=== PATIENT | male | born 1975 | race Caucasian/White ===

== ENCOUNTER 2016-12-07 15:20 | Emergency (ER) | payer OTHER ==
[2016-12-07] MEDS ORDERED: HYDROMORPHONE HCL INJ/PF 2 MG/ML AMPULE IM ONE (15:31)
[2016-12-07] MEDS ORDERED: CEFAZOLIN INJ 1 GM VIAL IM ONE (15:31)
--- NOTE | 2016-12-07 15:31 | ER Document Report ---
ED Medical Screen (RME) - General Stated Complaint: LEFT FINGER INJURY Notes: not UTD on tetanus cut his finger within the hour on a motorized saw the distal tip, approx. half an inch is missing with possible bone involvement. mild bleeding I have greeted and performed a rapid initial assessment of this patient. A comprehensive ED assessment and evaluation of the patient, analysis of test results and completion of the medical decision making process will be conducted by additional ED providers.
[2016-12-07] MEDS ORDERED: DIPH/PERTUSS(ACELL)/TETANUS VAC/PF 0.5 ML SYR (>=10YO) IM ONE (15:34)
--- NOTE | 2016-12-07 17:18 | ER Document Report ---
ED Hand/Wrist Injury <CELESTINO LUGO - Last Filed: 12/07/16 17:25> - General Time seen by provider: 17:05 Mode of Arrival: Ambulatory Information source: Patient TRAVEL OUTSIDE OF THE [place] IN LAST 30 DAYS: No - HPI Injury to: Index finger - left Onset: This afternoon - see HPI note 15:00 Where: Outdoors Context: Laceration <MEG VAZ - Last Filed: 12/07/16 17:36> - General Chief Complaint: Laceration Stated Complaint: LEFT FINGER INJURY Notes: Patient is a 41 year old male presenting to the emergency department complaining of a laceration to the left index finger. Patient was using a skill saw when he cut through the left index finger midway at the nail bed; the cut was made transversely. Patient's last tetanus was about 5 years or more ago and at time of exam patient states he received a tetanus today in the ED. The incident occurred at 15:00 today. Bleeding on the tip of the finger is controlled. Patient is holding gauze on his finger. Patient reports no medical or surgical history. Patient has no known allergies and does not smoke. (MEG VAZ) - Related Data Allergies/Adverse Reactions: No Known Allergies Allergy (Verified 12/07/16 16:54) Past Medical History - General Information source: Patient - Social History Smoking Status: Never Smoker Cigarette use (# per day): No Chew tobacco use (# tins/day): No Frequency of alcohol use: None Drug Abuse: None Family History: None Patient has suicidal ideation: No Patient has homicidal ideation: No - Medical History Medical History: Negative Surgical Hx: Negative - Immunizations Hx Diphtheria, Pertussis, Tetanus Vaccination: No - 10 years ago <MEG VAZ - Last Filed: 12/07/16 17:36> Review of Systems - Review of Systems Constitutional: No symptoms reported EENT: No symptoms reported Cardiovascular: No symptoms reported Respiratory: No symptoms reported Gastrointestinal: No symptoms reported Genitourinary: No symptoms reported Male Genitourinary: No symptoms reported Musculoskeletal: See HPI Skin: See HPI Hematologic/Lymphatic: No symptoms reported Neurological/Psychological: No symptoms reported <MEG VAZ - Last Filed: 12/07/16 17:36> Physical Exam - Vital signs Interpretation: Normal - General General appearance: Appears well, Alert In distress: Mild - HEENT Head: Normocephalic, Atraumatic Eyes: Normal Pupils: PERRL Mucous membranes: Moist - Respiratory Respiratory status: No respiratory distress Chest status: Nontender Breath sounds: Normal Chest palpation: Normal - Cardiovascular Rhythm: Regular Heart sounds: Normal auscultation Murmur: No - Abdominal Inspection: Normal Distension: No distension Bowel sounds: Normal Tenderness: Nontender Organomegaly: No organomegaly - Back Back: Normal, Nontender - Extremities General lower extremity: Normal inspection, Normal ROM, Normal strength Hand: Other - missing the tip of the left index finger, no active bleeding - Neurological Neuro grossly intact: Yes Cognition: Normal Orientation: AAOx4 Mulberry Coma Scale Eye Opening: Spontaneous Charla Coma Scale Verbal: Oriented Mulberry Coma Scale Motor: Obeys Commands Mulberry Coma Scale Total: 15 Speech: Normal - Psychological Associated symptoms: Normal affect, Normal mood - Skin Skin Temperature: Warm Skin Moisture: Dry <MEG VAZ - Last Filed: 12/07/16 17:36> - Vital signs Vitals: Temp Pulse Resp BP 97.6 F 113 H 20 143/109 H 12/07/16 15:33 12/07/16 15:33 12/07/16 15:33 12/07/16 15:33 (CELESTINO LUGO) (MEG VAZ) Course - Consults Dr. Olmos Time consulted: 17:15 Consulted provider: follow-up in office - Will see in the office at 10 AM tomorrow and repair the fingertip. <CELESTINO LUGO - Last Filed: 12/07/16 17:25> Discharge <CELESTINO LUGO - Last Filed: 12/07/16 17:25> <MEG VAZ - Last Filed: 12/07/16 17:36> - Discharge Clinical Impression: Fingertip amputation Qualifiers: Encounter type: initial encounter Qualified Code(s): S68.129A - Partial traumatic metacarpophalangeal amputation of unspecified finger, initial encounter Additional Instructions: Keep the dressing clean and dry. Elevate the hand all the time. Take medications as prescribed. Follow-up with Dr. Olmos at [facility] tomorrow morning at 9: 45 AM. Prescriptions: Cephalexin Monohydrate [Keflex 500 mg Capsule] 500 mg PO QID #20 capsule Oxycodone HCl/Acetaminophen [Percocet 5-325 mg Tablet] 1 - 2 tab PO ASDIR PRN # 15 tablet PRN Reason: Referrals: [facility] [Provider Group] - 12/08/16 9:45 am Scribe Attestation: 12/07/16 17:25 I personally performed the services described in the documentation, reviewed and edited the documentation which was dictated to the scribe in my presence, and it accurately records my words and actions. (CELESTINO LUGO) Scribe Documentation - Scribe Written by Scribe:: Meg Vaz 12/07/16 17:36 acting as scribe for :: Jessica <MEG VAZ - Last Filed: 12/07/16 17:36>
[2016-12-07] MEDS ORDERED: OXYCODONE-ACETAMINOPHEN 5-325 MG TABLET PO ONE (17:29)
[2016-12-07 17:55] VITALS: BP 158/92
== END 2016-12-07 17:54 | disposition home or self-care (01) ==
LOC: ER 15:20
DX: S68.621A Partial traumatic transphalangeal amputation of left index finger, initial encounter (principal); W29.8XXA Contact with other powered hand tools and household machinery, initial encounter; Z23 Encounter for immunization
CPT/HCPCS: 99283; 96372; 90471; 96374; 73140; 90715; J0690; J1170

== ENCOUNTER 2018-03-25 12:08 | Observation (INO) | payer OTHER ==
[2018-03-25 13:07] LABS: ALANINE AMINOTRANSFERASE 33 U/L (21-72); ALBUMIN 5.1 g/dL (3.5-5.0); ALKALINE PHOSPHATASE 96 U/L (38-126); ANION GAP 17 (5-19); ASPARTATE AMINO TRANSFERASE 23 U/L (17-59); BILIRUBIN,DIRECT 0.3 mg/dL (0.0-0.4); BLOOD UREA NITROGEN 24 mg/dL (7-20); CALCIUM 10.5 mg/dL (8.4-10.2); CARBON DIOXIDE 24 mmol/L (22-30); CHLORIDE 102 mmol/L (98-107); GLUCOSE 106 mg/dL (75-110); LIPASE 150.1 U/L (23-300); POTASSIUM 4.5 mmol/L (3.6-5.0); SODIUM 143.4 mmol/L (137-145); TOTAL PROTEIN 8.2 g/dL (6.3-8.2)
[2018-03-25 13:08] LABS: HEMATOCRIT 48.8 % (37.9-51.0); MEAN CORPUSCULAR HEMOGLOBIN 29.5 pg (27.0-33.4); MEAN CORPUSCULAR HGB CONC 34.9 g/dL (32.0-36.0); MEAN CORPUSCULAR VOLUME 85 fl (80-97); PLATELET COUNT 316 10^3/uL (150-450); RED BLOOD COUNT 5.78 10^6/uL (4.35-5.55); RED CELL DISTRIBUTION WIDTH 13.3 % (11.5-14.0); WHITE BLOOD COUNT 15.9 10^3/uL (4.0-10.5)
[2018-03-25 13:39] LABS: ABSOLUTE LYMPHOCYTES# (MANUAL) 0.5 10^3/uL (0.5-4.7); ABSOLUTE MONOCYTES # (MANUAL) 0.5 10^3/uL (0.1-1.4); ABSOLUTE NEUTROPHILS# (MANUAL) 14.8 10^3/uL (1.7-8.2); BAND NEUTROPHILS % (MANUAL) 2 % (3-5); BASOPHILS % (MANUAL) 0 % (0-2); EOSINOPHILS % (MANUAL) 1 % (0-6); LYMPHOCYTES % (MANUAL) 2 % (13-45); MONOCYTES % (MANUAL) 3 % (3-13); PLATELET COMMENT ADEQUATE; POLYCHROMASIA SLIGHT; SEGMENTED NEUTROPHILS % (MAN) 91 % (42-78); TOTAL CELLS COUNTED 100; TOXIC GRANULATION SLIGHT; TOXIC VACUOLATION PRESENT
--- NOTE | 2018-03-25 15:03 | ER Document Report ---
ED General - General Chief Complaint: Abdominal Pain Stated Complaint: ABDOMINAL PAIN Time Seen by Provider: 03/25/18 14:18 Mode of Arrival: Ambulatory Information source: Patient Notes: 42-year-old male presents with complaints of right upper quadrant abdominal pain that started this morning. Patient denies any fevers or chills admits nausea vomiting and diarrhea patient denies any previous similar episodes TRAVEL OUTSIDE OF THE [place] IN LAST 30 DAYS: No - HPI Onset: This morning Onset/Duration: Sudden Quality of pain: Sharp Severity: Mild Pain Level: 1 Associated symptoms: Diarrhea, Nausea, Vomiting Exacerbated by: Denies Relieved by: Denies Similar symptoms previously: No Recently seen / treated by doctor: Yes - Sent in by [facility] urgent care - Related Data Allergies/Adverse Reactions: No Known Allergies Allergy (Verified 03/25/18 12:10) Past Medical History - Social History Smoking Status: Never Smoker Cigarette use (# per day): No Chew tobacco use (# tins/day): No Smoking Education Provided: No Frequency of alcohol use: Social Family History: None Patient has suicidal ideation: No Patient has homicidal ideation: No Renal/ Medical History: Denies: Hx Peritoneal Dialysis - Immunizations Hx Diphtheria, Pertussis, Tetanus Vaccination: No - 10 years ago Review of Systems - Review of Systems Notes: REVIEW OF SYSTEMS: CONSTITUTIONAL : Denies fever, chills, or sweats. Denies recent illness. EENT: Denies eye, ear, throat, or mouth pain or symptoms. Denies nasal or sinus congestion or discharge. Denies throat, tongue, or mouth swelling or difficulty swallowing. CARDIOVASCULAR: Denies chest pain. Denies palpitations or racing or irregular heart beat. Denies ankle edema. RESPIRATORY: Denies cough, cold, or chest congestion. Denies shortness of breath, difficulty breathing, or wheezing. GASTROINTESTINAL: Admits to right upper quadrant abdominal pain nausea vomiting diarrhea GENITOURINARY: Denies difficulty urinating, painful urination, burning, frequency, blood in urine, or discharge. MUSCULOSKELETAL: Denies back or neck pain or stiffness. Denies joint pain or swelling. SKIN: Denies rash, lesions or sores. HEMATOLOGIC : Denies easy bruising or bleeding. LYMPHATIC: Denies swollen, enlarged glands. NEUROLOGICAL: Denies confusion or altered mental status. Denies passing out or loss of consciousness. Denies dizziness or lightheadedness. Denies headache. Denies weakness or paralysis or loss of use of either side. Denies problems with gait or speech. Denies sensory loss, numbness, or tingling. Denies seizures. PSYCHIATRIC: Denies anxiety or stress. Denies depression, suicidal ideation, or homicidal ideation. ALL OTHER SYSTEMS REVIEWED AND NEGATIVE. Dictation was performed using [employer] voice recognition software PHYSICAL EXAMINATION: GENERAL: Well-appearing, well-nourished and in no acute distress. HEAD: Atraumatic, normocephalic. EYES: Pupils equal round and reactive to light, extraocular movements intact, sclera anicteric, conjunctiva are normal. ENT: Nares patent, oropharynx clear without exudates. Moist mucous membranes. NECK: Normal range of motion, supple without lymphadenopathy LUNGS: Breath sounds clear to auscultation bilaterally and equal. No wheezes rales or rhonchi. HEART: Regular rate and rhythm without murmurs ABDOMEN: Soft, tender in the right upper quadrant with guarding. Musculoskeletal: Normal range of motion, no pitting or edema. No cyanosis. NEUROLOGICAL: Cranial nerves grossly intact. Normal speech, normal gait. Normal sensory, motor exams PSYCH: Normal mood, normal affect. SKIN: Warm, Dry, normal turgor, no rashes or lesions noted. Physical Exam - Vital signs Vitals: Temp Pulse Resp BP Pulse Ox 98.0 F 88 20 135/100 H 99 03/25/18 12:14 03/25/18 12:14 03/25/18 12:14 03/25/18 12:14 03/25/18 12:14 Course - Re-evaluation Re-evalutation: 03/25/18 15:18 Patient is noted to have white count 16, ultrasound is pending, he notes relief with nausea control 03/25/18 17:19 Dr. Casiano will evaluate the patient ultrasound notes no acute abnormality my count noted 03/25/18 18:[address] Casiano who will admit to his service for concerns of acute cholecystitis - Vital Signs Vital signs: Temp Pulse Resp BP Pulse Ox 98.0 F 88 20 135/100 H 99 03/25/18 12:14 03/25/18 12:14 03/25/18 12:14 03/25/18 12:14 03/25/18 12:14 - Laboratory Result Diagrams: 03/25/18 11:50 03/25/18 11:50 Laboratory results interpreted by me: 03/25/18 03/25/18 03/25/18 11:50 11:50 15:47 WBC 15.9 H RBC 5.78 H Seg Neuts % (Manual) 91 H Band Neutrophils % 2 L Lymphocytes % (Manual) 2 L Abs Neuts (Manual) 14.8 H BUN 24 H Calcium 10.5 H Albumin 5.1 H Urine Ascorbic Acid 20 H - Diagnostic Test Radiology reviewed: Image reviewed - Ultrasound abdomen limited notes no acute abnormality, Reports reviewed Discharge - Discharge Clinical Impression: Acute cholecystitis Condition: Stable Disposition: ADMITTED OBSERVATION Admitting Provider: Surgicalist Unit Admitted: Surgical Floor
[2018-03-25] MEDS ORDERED: METOCLOPRAMIDE HCL INJ/PF 10 MG/2 ML SDV IV ONE (15:16)
[2018-03-25] MEDS ORDERED: NORMAL SALINE 1000 ML 1,000 ML IV ONE (15:16)
[2018-03-25] MEDS ORDERED: HYDROMORPHONE HCL INJ/PF 2 MG/ML AMPULE IV ONE (15:16)
[2018-03-25 16:14] LABS: APPEARANCE,URINE CLEAR; BILIRUBIN,URINE NEGATIVE (NEGATIVE); COLOR,URINE YELLOW; GLUCOSE, URINE NEGATIVE (NEGATIVE); KETONES,URINE NEGATIVE (NEGATIVE); LEUKOCYTE ESTERASE,URINE NEGATIVE (NEGATIVE); NITRITE,URINE NEGATIVE (NEGATIVE); PROTEIN,URINE NEGATIVE (NEGATIVE); URINE SPECIFIC GRAVITY 1.028; UROBILINOGEN,URINE NEGATIVE mg/dL (<2.0)
--- NOTE | 2018-03-25 16:55 | RADIOLOGY REPORT (SQ) ---
EXAM DESCRIPTION: U/S ABDOMEN LIMITED W/O DOP COMPLETED DATE/TIME: 03/25/2018 4:44 pm REASON FOR STUDY: RUQ pain COMPARISON: None. TECHNIQUE: Dynamic and static grayscale images acquired of the abdomen and recorded on PACS. Additio nal selected color Doppler and spectral images recorded. LIMITATIONS: Study is limited due to overlying bowel gas P FINDINGS: PANCREAS: The pancreas could not be visualized due to overlying bowel gas. LIVER: No masses. Echotexture normal. LIVER VASCULATURE: Normal directional flow of the main portal vein. GALLBLADDER: No stones. Normal wall thickness. No pericholecystic fluid. ULTRASOUND-DETECTED CARDONA'S SIGN: Negative. INTRAHEPATIC DUCTS AND COMMON DUCT: CBD and intrahepatic ducts normal caliber. No filling defects. INFERIOR VENA CAVA: Normal flow. AORTA: No aneurysm. RIGHT KIDNEY: 10.7 cm in length. Normal echogenicity. No solid or suspicious masses. No hydronephros is. No calcifications. PERITONEAL AND RIGHT PLEURAL SPACE: No ascites or effusions. OTHER: No other significant findings. IMPRESSION: Somewhat limited study as noted above. No significant intra-abdominal abnormalities wer e identified. TECHNICAL DOCUMENTATION: JOB ID: [id number] [employer]- All Rights Reserved Reading location - IP/workstation name: [facility]
[2018-03-25] MEDS ORDERED: ONDANSETRON HCL INJ/PF 4 MG/2 ML SDV IV PRN (18:45)
[2018-03-25] MEDS ORDERED: KETOROLAC TROMETHAMINE INJ/PF 30 MG/1 ML SDV IV PRN (18:45)
--- NOTE | 2018-03-25 18:53 | PDOC H&P ---
History of Present Illness Patient complains of: Abdominal pain History of Present Illness: JANAY MOLINA is a 42 year old male Sense to the department via ground rescue complaining of acute onset abdominal pain at approximately midnight associated with multiple episodes of nausea and vomiting. Last bowel movement was today, normal patient has otherwise been feeling well until last p.m. He denies others around him being sick. He is continued to have abdominal pain in the emergency department. Gallbladder ultrasonography was interpreted as abnormal. White blood cell count elevated. Because of persisting pain and tenderness, surgery was consulted. Clinical history and physical exam findings were consistent with acute cholecystitis. Patient was advised admission and definitive management. Family history of gallstone disease in patient's grandmother Past Medical History Medical History: None Past Surgical History Past Surgical History: Reports: None Social History Information Source: Patient Smoking Status: Never Smoker Frequency of Alcohol Use: Occasional Family History Family History: None Parental Family History Reviewed: Yes Children Family History Reviewed: Yes Sibling(s) Family History Reviewed.: Yes Medication/Allergy Home Medications: No Home Medications 03/25/18 Allergies/Adverse Reactions: No Known Allergies Allergy (Verified 03/25/18 12:10) Review of Systems Constitutional: ABSENT: chills, fever(s), headache(s), weight gain, weight loss Eyes: ABSENT: visual disturbances Ears: ABSENT: hearing changes Cardiovascular: ABSENT: chest pain, dyspnea on exertion, edema, orthropnea, palpitations Gastrointestinal: PRESENT: as per HPI. ABSENT: abdominal pain, constipation, diarrhea, hematemesis, hematochezia, nausea, vomiting Genitourinary: ABSENT: dysuria, hematuria Musculoskeletal: ABSENT: joint swelling Integumentary: ABSENT: rash, wounds Neurological: ABSENT: abnormal gait, abnormal speech, confusion, dizziness, focal weakness, syncope Psychiatric: ABSENT: anxiety, depression, homidical ideation, suicidal ideation Endocrine: ABSENT: cold intolerance, heat intolerance, polydipsia, polyuria Physical Exam Vital Signs: Temp Pulse Resp BP Pulse Ox 98.0 F 88 20 135/100 H 99 03/25/18 12:14 03/25/18 12:14 03/25/18 12:14 03/25/18 12:14 03/25/18 12:14 Intake & Output 03/24/18 03/25/18 03/26/18 06:59 06:59 06:59 Weight 83.1 kg General appearance: PRESENT: mild distress Head exam: PRESENT: normocephalic Eye exam: PRESENT: EOMI Mouth exam: PRESENT: dry mucosa Neck exam: PRESENT: full ROM Cardiovascular exam: PRESENT: RRR Pulses: PRESENT: normal carotid pulses, normal radial pulses, normal femoral pulses GI/Abdominal exam: PRESENT: other - Tender right upper quadrant with guarding; bowel sounds hypo-active Rectal exam: PRESENT: deferred Gentrourinary exam: PRESENT: other - Normal Extremities exam: PRESENT: full ROM Neurological exam: PRESENT: alert, awake, oriented to person, oriented to place , oriented to time, oriented to situation Psychiatric exam: PRESENT: anxious Results Laboratory Results: 03/25/18 11:50 03/25/18 11:50 03/25/18 03/25/18 03/25/18 11:50 11:50 15:47 WBC 15.9 H RBC 5.78 H Hgb 17.0 Hct 48.8 MCV 85 MCH 29.5 MCHC 34.9 RDW 13.3 Plt Count 316 Seg Neutrophils % Not Reportable Lymphocytes % Not Reportable Monocytes % Not Reportable Eosinophils % Not Reportable Basophils % Not Reportable Absolute Neutrophils Not Reportable Absolute Lymphocytes Not Reportable Absolute Monocytes Not Reportable Absolute Eosinophils Not Reportable Absolute Basophils Not Reportable Sodium 143.4 Potassium 4.5 Chloride 102 Carbon Dioxide 24 Anion Gap 17 BUN 24 H Creatinine 1.00 Est GFR ( Amer) > 60 Est GFR (Non-Af Amer) > 60 Glucose 106 Calcium 10.5 H Total Bilirubin 1.0 AST 23 ALT 33 Alkaline Phosphatase 96 Total Protein 8.2 Albumin 5.1 H Lipase 150.1 Urine Color YELLOW Urine Appearance CLEAR Urine pH 5.0 Ur Specific Luna 1.028 Urine Protein NEGATIVE Urine Glucose (UA) NEGATIVE Urine Ketones NEGATIVE Urine Blood NEGATIVE Urine Nitrite NEGATIVE Ur Leukocyte Esterase NEGATIVE Urine WBC (Auto) 0 Urine RBC (Auto) 1 Impressions: Abdomen Ultrasound 03/25/18 15:16 IMPRESSION: Somewhat limited study as noted above. No significant intra- abdominal abnormalities were identified. Assessment & Plan - Diagnosis (1) Acute cholecystitis Is this a current diagnosis for this admission?: Yes Plan: Based on clinical history, physical exam findings ,leukocytosis, clinical picture most consistent with acute cholecystitis despite normal gallbladder interpretation by the radiologist. This was a limited study due to overlying bowel gas. Acute peptic ulcer disease considered less likely. Recommendations: 1. Admit to the surgical service, keep n.p.o. on IV fluids intravenous antibiotic. 2. We will set patient up for laparoscopic possible open cholecystectomy, tomorrow; - Time Time Spent: 30 to 50 Minutes Medications reviewed and adjusted accordingly: Yes Anticipated discharge: Home - Inpatient Certification Based on my medical assessment, after consideration of the patient's comorbidities, presenting symptoms, or acuity I expect that the services needed warrant INPATIENT care.: Yes I certify that my determination is in accordance with my understanding of Medicare's requirements for reasonable and necessary INPATIENT services [42 CFR 412.3e].: Yes Medical Necessity: Need for Pain Control, Need for IV Antibiotics, Need for Surgery
[2018-03-25] MEDS: RINGERS SOLUTION,LACTATED 1,000 ML IV PRN (19:56)
[2018-03-25] MEDS ORDERED: FAMOTIDINE INJ/PF 20 MG/2 ML SDV IV ONE (20:30)
[2018-03-25] MEDS: CEFAZOLIN 1 GM/D5W RTU 1 GM/50 ML RTUPB IV SCH (22:12)
[2018-03-26] MEDS: RINGERS SOLUTION,LACTATED 1,000 ML IV PRN (01:48)
[2018-03-26] MEDS: CEFAZOLIN 1 GM/D5W RTU 1 GM/50 ML RTUPB IV SCH ×2 (06:52→14:18)
--- NOTE | 2018-03-26 13:01 | RADIOLOGY REPORT (SQ) ---
EXAM DESCRIPTION: NM HIDA SCAN WITH CCK COMPLETED DATE/TIME: 03/26/2018 12:51 pm REASON FOR STUDY: RUQ PAIN COMPARISON: None. RADIONUCLIDE AND DOSE: DOSAGE RADIONUCLIDE: 5.32 millicuries Tc99m Mebrofenin. DOSAGE CCK: 1.7 micrograms. DOSAGE MORPHINE: Not required. The route of agent administration: Intravenous TECHNIQUE: Serial imaging right upper quadrant up to 60 minutes following injection of radionuclide. CCK injected after gallbladder visualized. LIMITATIONS: None. FINDINGS: LIVER: Normal visualization without areas of photopenia. INTRAHEPATIC BILE DUCTS: Normal size and no delay in visualization. COMMON BILE DUCT: Normal without dilatation. GALLBLADDER: Normal visualization. Calculated ejection fraction of 46%. Normal range is greater th an 35%. PHYSICAL RESPONSE: Patients presenting complaint was not reproduced. OTHER: No other significant finding. IMPRESSION: NORMAL STUDY WITHOUT CYSTIC OR COMMON DUCT OBSTRUCTION. NORMAL GALLBLADDER EJECTION FRA CTION. NO EVIDENCE FOR BILIARY DYSKINESIS. TECHNICAL DOCUMENTATION: JOB ID: [id number] [employer]- All Rights Reserved Reading location - IP/workstation name: [email or web address]
[2018-03-26 13:58] LABS: HEMATOCRIT 39.4 % (37.9-51.0); MEAN CORPUSCULAR HEMOGLOBIN 29.6 pg (27.0-33.4); MEAN CORPUSCULAR HGB CONC 35.3 g/dL (32.0-36.0); MEAN CORPUSCULAR VOLUME 84 fl (80-97); PLATELET COUNT 235 10^3/uL (150-450); RED BLOOD COUNT 4.69 10^6/uL (4.35-5.55); RED CELL DISTRIBUTION WIDTH 12.9 % (11.5-14.0); WHITE BLOOD COUNT 4.7 10^3/uL (4.0-10.5)
[2018-03-26 14:02] LABS: HEMOGLOBIN 13.9 g/dL (13.5-17.0)
[2018-03-26 15:54] VITALS: BP 133/72
--- NOTE | 2018-03-26 21:09 | DISCHARGE SUMMARY E ---
Discharge Summary NAME: JANAY MOLINA : 1975 AGE: 42Y ADMITTED: 03/25/2018 DISCHARGED: 03/26/2018 FINAL DIAGNOSIS: Biliary colic. HOSPITAL COURSE: This is a 42-year-old male who complained of severe right upper quadrant pain around midnight of 03/25/18. He went to the Emergency Room where an ultrasound of the gallbladder was done and no stones noted and no inflammation. White blood count was elevated. However, this morning, patient claimed pains have subsided and he does not have any more tenderness in the right upper quadrant. A HIDA scan was done which showed normal. Repeat white count was done. It was normal at 4.7 white count. Patient tolerating regular diet. Patient was then discharged improved to be followed up in the surgical clinic in a week. He was advised not to eat anything greasy for the next few days. DICTATING PHYSICIAN: RODOLFO HERNANDEZ M.D. [id number] PHY#: [id number] ID: [id number] JOB#: [id number] ACCT: [id number] cc:RODOLFO HERNANDEZ M.D. [facility],
== END 2018-03-26 16:21 | disposition home or self-care (01) ==
LOC: ER 12:08 → EH 18:50 → 2N 03-26 00:23
PROVIDERS: ATTEND Surgery
DX: K80.50 Calculus of bile duct without cholangitis or cholecystitis without obstruction (principal); R19.7 Diarrhea, unspecified; D72.829 Elevated white blood cell count, unspecified; Z83.79 Family history of other diseases of the digestive system
CPT/HCPCS: 99285; 96361; 96375; 96365; 36415 ×2; 83690; 85025; 85027; 80053; 81001; 76705; 78227; G0378 ×3; J2805; A9537; J0690 ×2; J1885; J2765; J1170; J7030; J7120 ×2; S0028; Q9969

== ENCOUNTER 2020-03-28 03:52 | Emergency (ER) | payer OTHER ==
[2020-03-28 04:15] VITALS: BP 137/90
--- NOTE | 2020-03-28 05:51 | ER Document Report ---
Entered by VINICIO LEWIS SCRIBE 03/28/20 0523 Acting as scribe for:AGUSTINA PEARSON IV, MD ED Extremity Problem, Upper - General Chief Complaint: Shoulder Pain Stated Complaint: SHOULDER INJURY Time Seen by Provider: 03/28/20 04:48 Primary Care Provider: MAITE GEE MD [ACTIVE PROVISIONAL STAFF] - 03/29/20 (call on 03/29/2020 to schedule follow up appointment) Mode of Arrival: Wheelchair Information source: Patient Notes: This 44 year old male patient presents the ED today with complaints of right shoulder pain status post fall that occurred just prior to arrival. Patient states that he fell off his pool deck and landed on his right shoulder on the ground. Denies hitting his head or loss of consciousness. Patient admits to ETOH use tonight, stating that he has been drinking both beer and liquor since last night until early this morning. TRAVEL OUTSIDE OF THE [place] IN LAST 30 DAYS: No - Related Data Allergies/Adverse Reactions: No Known Allergies Allergy (Verified 03/25/18 12:10) Past Medical History - General Information source: Patient - Social History Smoking Status: Never Smoker Cigarette use (# per day): No Chew tobacco use (# tins/day): No Smoking Education Provided: No Frequency of alcohol use: Social Drug Abuse: Marijuana Occupation: Construction Family History: Reviewed & Not Pertinent Patient has suicidal ideation: No Patient has homicidal ideation: No - Immunizations Hx Diphtheria, Pertussis, Tetanus Vaccination: No - 10 years ago Review of Systems - Review of Systems Constitutional: No symptoms reported EENT: No symptoms reported Cardiovascular: No symptoms reported Gastrointestinal: No symptoms reported Genitourinary: No symptoms reported Male Genitourinary: No symptoms reported Musculoskeletal: See HPI, Joint pain - Right shoulder Skin: No symptoms reported Hematologic/Lymphatic: No symptoms reported Neurological/Psychological: See HPI. denies: Lost consciousness, Headaches -: Yes All other systems reviewed and negative Physical Exam - Vital signs Vitals: Temp Pulse Resp BP Pulse Ox 97.8 F 92 20 137/90 H 97 03/28/20 04:14 03/28/20 04:14 03/28/20 04:14 03/28/20 04:14 03/28/20 04:14 - General General appearance: Alert In distress: None - HEENT Head: Normocephalic, Atraumatic Eyes: Normal Pupils: PERRL - Respiratory Respiratory status: No respiratory distress Chest status: Nontender Breath sounds: Normal Chest palpation: Normal - Cardiovascular Rhythm: Regular Heart sounds: Normal auscultation Murmur: No Friction rub: No Gallop: None auscultated - Abdominal Inspection: Normal Distension: No distension Bowel sounds: Normal Tenderness: Nontender - Abdomen soft Organomegaly: No organomegaly - Back Back: Normal, Nontender - Extremities General lower extremity: Normal inspection Shoulder: Other - Protusion of distal right clavicle underneath the skin at the AC joint. No anterior fullness appreciated. - Neurological Neuro grossly intact: Yes - Psychological Associated symptoms: Normal affect, Normal mood - Skin Skin Temperature: Warm Skin Moisture: Dry Skin Color: Normal Course - Re-evaluation Re-evalutation: 03/28/20 05:28 Results of ED MSE discussed with patient. Treatment discussed with patient. All questions were answered prior to discharge. Emergency signs and symptoms, reasons to return to the emergency department discussed with patient. - Vital Signs Vital signs: Temp Pulse Resp BP Pulse Ox 97.8 F 92 20 137/90 H 97 03/28/20 04:28 03/28/20 04:14 03/28/20 04:14 03/28/20 04:14 03/28/20 04:14 - Diagnostic Test Radiology reviewed: Reports reviewed Discharge - Discharge Clinical Impression: Separation of AC joint Qualifiers: Encounter type: initial encounter Laterality: right Qualified Code(s): S43.101A - Unspecified dislocation of right acromioclavicular joint, initial encounter Condition: Good Disposition: HOME, SELF-CARE Additional Instructions: Return to the Emergency Department without delay if any worse. HOME CARE INSTRUCTIONS & INFORMATION: Thank you for choosing us for your medical needs. We hope you're satisfied with the care you received. After you leave, you must properly care for your problem and, at the same time, observe its progress. Any condition can change. Some illnesses can change rapidly over hours or days. If your condition worsens, return to the Emergency Department or see your physician promptly. ABOUT YOUR X-RAYS AND EKG'S: If you had an EKG or X-rays taken, they have been read by the Emergency Physician. The X-rays and EKG's will also be read by a Radiologist or Casing Puller within 24 hours. If discrepancies are noted, you will be notified by telephone. Please be certain the ED has a correct telephone number & address where you can be reached. Also, realize that some fractures or abnormalities do not show up on initial X-rays. If your symptoms continue, see your physician. ABOUT YOUR LABORATORY TEST: If you had laboratory tests, the results have been reviewed by the Emergency Physician. Some test results (for example cultures) may not be available for several days. You will be contacted if any test result shows you need additional treatment. Please be certain the ED has a correct telephone number and address where you can be reached. ABOUT YOUR MEDICATIONS: You will receive instructions on how to take your medicine on the prescription label you receive. Additional information may be provided by the Pharmacy. If you have questions afterwards, call the ED for clarification or further instructions. Some prescribed medications may cause drowsiness. Do not perform tasks such as driving a car or operating machinery without consulting your Pharmacist. If you feel you need a refill of pain medication, your condition will need re-evaluation. Please do not call for a refill of any medication. ABOUT YOUR SIGNATURE: Signature of this document acknowledges to followin. Understanding that you received emergency treatment and that you may be released before al medical problems are known or treated. Please be certain the ED has a correct phone number & address where you can be reached. 2. Acknowledgement that you will arrange for follow-up care as recommended. 3. Authorization for the Emergency Physician to provide information to your follow-up Physician in order to maximize your care. AT ANY TIME, IF YOUR SYMPTOMS CHANGE SIGNIFICANTLY OR WORSEN OR YOU DEVELOP NEW SYMPTOMS, RETURN TO THE EMERGENCY DEPARTMENT IMMEDIATELY FOR RE-EVALUATION. OUR GOAL IS TO PROVIDE EXCELLENT MEDICAL CARE! WE HOPE THAT WE HAVE MET YOUR EXPECTATIONS DURING YOUR EMERGENCY DEPARTMENT VISIT AND THAT YOU FEEL YOU HAVE RECEIVED EXCELLENT CARE! AC Joint Sprain The injury to your shoulder caused an acromioclavicular (AC) sprain. This is often called a "shoulder separation," involving the joint between the point of the shoulder-blade and the collarbone. This injury, while quite painful, will usually heal well without any permanent problems. The usual treatment is cold packs and a sling. (In rare cases, a shoulder separation may require surgery.) The shoulder will need to be rested until the pain and swelling decrease. With milder AC sprains, the shoulder can be used again within a few days, although motions such as throwing may be painful for months. The usual guideline is "if it hurts, don't do it." Your physician has assessed the severity of your shoulder separation. It is important that instructions be followed exactly concerning work, sports, and follow-up care. Your treatment plan may change based on the results of further check-ups. Prescriptions: Hydrocodone/Acetaminophen [[place] 5-325 mg Tablet] 1 tab PO Q6HP PRN #15 tablet PRN Reason: pain Referrals: MAITE GEE MD [ACTIVE PROVISIONAL STAFF] - 03/29/20 (call on 03/29/2020 to schedule follow up appointment) I personally performed the services described in the documentation, reviewed and edited the documentation which was dictated to the scribe in my presence, and it accurately records my words and actions.
--- NOTE | 2020-03-28 06:07 | RADIOLOGY REPORT (SQ) ---
EXAM DESCRIPTION: XR SHOULDER 2 OR MORE VIEWS COMPLETED DATE/TME: 03/28/2020 00:00 CLINICAL HISTORY: 44 years Male, right shoulder injury COMPARISON: None. Findings: Full inferior subluxation of the right acromioclavicular joint indicative of acromioclavicular ligamentous injury. Bones, joints, and soft tissues of the RIGHT XR SHOULDER 2 OR MORE VIEWS appear otherwise unremarkable. IMPRESSION: Full inferior subluxation of the right acromioclavicular joint indicative of acromioclavicular ligamentous injury.
== END 2020-03-28 05:47 | disposition home or self-care (01) ==
LOC: ER 03:52
DX: S43.141A Inferior dislocation of right acromioclavicular joint, initial encounter (principal); M25.511 Pain in right shoulder; W17.89XA Other fall from one level to another, initial encounter; F12.10 Cannabis abuse, uncomplicated
CPT/HCPCS: 99283